=== PATIENT | female | born 1990 | race Caucasian/White ===

== ENCOUNTER 2018-08-28 07:11 | Observation (INO) | payer BC ==
[2018-08-28] MEDS ORDERED: Ketorolac INJ* 30 MG/ML 1 ML VIAL IV PUSH ONE (07:54)
[2018-08-28] MEDS ORDERED: Ondansetron INJ* 2 MG/ML VIAL IV ONE (07:54)
[2018-08-28] MEDS ORDERED: NS 0.9% 1000 ML** 1,000 ML IV ONE ×2 (07:54→07:55)
--- NOTE | 2018-08-28 07:54 | ED ---
Abdominal Pain/Female - HPI Summary HPI Summary: The patient is a 27 y/o F presenting to [facility] with a chief complaint of sudden onset constant stabbing diffuse abd pain that is worst in the RLQ starting yesterday morning. She states the the pain is currently rated 6/10 in severity, and it is worsened by movement and ambulation, but alleviated by rest. She additionally c/o mild fever, chills, diarrhea with one episode of dark stool ( no blood) without pain, nausea, diarrhea, decreased appetite, and low back pain. She attempted to relieve the pain with Pepto-Bismol to little relief. She denies CP and SOB. No allergies. No past medical or surgical hx. Nonsmoker, weekly EtOH, no substance use. LNMP: 08/23/2018. - History of Current Complaint Chief Complaint: EDAbdPain Stated Complaint: ABD PAIN PER PT Time Seen by Provider: 08/28/18 07:43 Hx Obtained From: Patient Onset/Duration: Sudden Onset, Lasting Days - starting yesterday morning, Still Present Timing: Constant Severity Initially: Moderate Severity Currently: Severe Pain Intensity: 6 Pain Scale Used: 0-10 Numeric Location: Diffuse, Other - worse in the RLQ Radiates: No Character: Other: - stabbing Aggravating Factor(s): Movement, Other: - ambulation Alleviating Factor(s): Position - lying down Associated Signs and Symptoms: Positive: Fever, Back Pain - low, Decreased Appetite, Nausea, Vomiting, Diarrhea - with one episode of dark stool without pain or blood, Other: - POSITIVE: chills; NEGATIVE: SOB. Negative: Chest Pain Allergies/Adverse Reactions: Allergies Allergy/AdvReac Type Severity Reaction Status Date / Time No Known Allergies Allergy Verified 08/28/18 07:23 Home Medications: Home Medications Etonogest/Eth.estradiol (Nf) [Nuvaring Vaginal Ring] 1 each VAGINAL .SEE COMMENTS 08/28/18 [History Confirmed 08/28/18] PMH/Surg Hx/FS Hx/Imm Hx Endocrine/Hematology History: Denies: Hx Diabetes Respiratory History: Denies: Hx Asthma Sensory History: Reports: Hx Contacts or Glasses Denies: Hx Deafness Opthamlomology History: Reports: Hx Contacts or Glasses Denies: Hx Legally Blind EENT History: Denies: Hx Deafness - Surgical History Surgery Procedure, Year, and Place: none Infectious Disease History: No Infectious Disease History: Denies: Traveled Outside the [place] in Last 30 Days - Family History Known Family History: Negative: Hypertension - Social History Alcohol Use: Weekly Hx Substance Use: No Substance Use Type: Reports: None Hx Tobacco Use: No Smoking Status (MU): Never Smoked Tobacco Review of Systems Positive: Fever, Chills Negative: Chest Pain Negative: Shortness Of Breath Positive: Abdominal Pain - diffuse but mostly in the RLQ, Vomiting, Diarrhea - dark stool, one episode without pain or blood, Nausea, Other - decreased appetite Positive: Other - low back pain All Other Systems Reviewed And Are Negative: Yes Physical Exam - Summary Physical Exam Summary: GENERAL: Patient is a well-developed and nourished female who is lying comfortable in the stretcher. Patient is not in any acute respiratory distress. HEAD AND FACE: Normocephalic EYES: PERRLA, EOMI x 2. EARS: Hearing grossly intact. MOUTH: Oropharynx within normal limits. NECK: Supple, trachea is midline, no adenopathy, no JVD, no carotid bruit. CHEST: Symmetric, no tenderness at palpation LUNGS: Clear to auscultation bilaterally. No wheezing or crackles. CVS: Tachycardic with regular rhythm, S1 and S2 present, no murmurs or gallops appreciated. ABDOMEN: Soft, tender to palpation over the lower quadrants but more particularly over the RLQ. Bowel sounds are normal. No abdominal abnormal pulsations. EXTREMITIES: Full ROM in all major joints, no edema, no cyanosis or clubbing. NEURO: Alert and oriented x 3. No acute neurological deficits. Speech is normal and follows commands. SKIN: Dry and warm Triage Information Reviewed: Yes Vital Signs On Initial Exam: Initial Vitals Temp Pulse Resp BP Pulse Ox 97.6 F 110 14 107/67 98 08/28/18 07:19 08/28/18 07:19 08/28/18 07:19 08/28/18 07:19 08/28/18 07:19 Vital Signs Reviewed: Yes Diagnostics - Vital Signs Vital Signs Temp Pulse Resp BP Pulse Ox 08/28/18 07:29 107 98 08/28/18 07:19 97.6 F 110 14 107/67 98 - Laboratory Result Diagrams: 08/28/18 07:51 08/28/18 07:51 Lab Statement: Any lab studies that have been ordered have been reviewed, and results considered in the medical decision making process. - CT Abd/Pel CT CT Interpretation Completed By: Radiologist Summary of CT Findings: Acute appendicitis. There is a small amount of free fluid noted along the distal appendix without loculated fluid collection to suggest abscess. ED physician has reviewed this report. Re-Evaluation - Re-Evaluation First Eval Re-Evaluation Time: 09:30 Change: Unchanged Comment: I spoke with the patient concerning CT results and surgical consult with Dr. Mccain. Abdominal Pain Fem Course/Dx - Course Course Of Treatment: The patient is a 27 y/o F with a chief complaint of sudden onset stabbing diffuse abd pain that is worst in the RLQ starting yesterday morning that worsens with movement and has been accompanied by diarrhea. Upon physical exam, the patient exhibits tachycardia and tenderness the lower quadrants but more particularly over the RLQ. Upon physical exam, the patient exhibits tachycardia and tenderness the lower quadrants but more particularly over the RLQ. She is diagnosed with acute appendicitis. Dr. Mccain, surgery, came to see the patient in the ED at 0920. The patient will be admitted to the OR. Case discussed with Dr. Mccain. I discussed results with patient. The patient agrees with this plan. - Diagnoses Provider Diagnoses: Acute appendicitis - Provider Notifications Discussed Care Of Patient With: David Mccain - surgery Time Discussed With Above Provider: 09:20 Instructed by Provider To: Other - Dr. Mccain will come see the patient in the ED to talk about surgery concerning CT results. Discharge - Sign-Out/Discharge Documenting (check all that apply): Patient Departure - Patient will be admitted to [facility] for [place]. Patient Received Moderate/Deep Sedation with Procedure: No - Discharge Plan Condition: Stable Disposition: ADMITTED TO [facility] - Billing Disposition and Condition Condition: STABLE Disposition: Admitted to [facility] - Attestation Statements Document Initiated by Scribe: Yes Documenting Scribe: Makayla Bustillo Provider For Whom Antione is Documenting (Include Credential): Dr. Rahel Barber MD Scribe Attestation: Makayla Prasad, scribed for Dr. Rhael Barber MD on 08/28/18 at 1754. Scribe Documentation Reviewed: Yes Provider Attestation: The documentation as recorded by the Makayla yates accurately reflects the service I personally performed and the decisions made by me, Dr. Rahel Braber MD Status of Scribe Document: Viewed
[2018-08-28 08:05] LABS: ABS Basophils 0.1 10^3/ul (0-0.2); ABS Eosinophils 0 10^3/ul (0-0.6); ABS Monocytes 1.1 10^3/ul (0-0.8); ABS Neutrophils 15.8 10^3/ul (1.5-7.7); ABS Nucleated RBC 0 10^3/ul; Eosinophil % 0.1 %; Hematocrit 36 % (33-41); Hemoglobin 11.8 g/dL (12.0-16.0); Lymphocyte % 5.4 %; Mean Corpuscular HGB Conc 33 g/dL (31-36); Mean Corpuscular Hemoglobin 27 pg (27-31); Mean Corpuscular Volume 82 fL (80-97); Mean Platelet Volume 6.8 fL (7.4-10.4); Nucleated Red Blood Cells % 0; Platelet Count 286 10^3/uL (150-450); Red Blood Count 4.42 10^6 /uL (3.70-4.87); Red Cell Distribution Width 14 % (10.5-15); White Blood Count 17.9 10^3/uL (3.5-10.8)
[2018-08-28 08:24] LABS: Urine Appearance Cloudy; Urine Bacteria 1+ (Absent); Urine Bilirubin Negative (Negative); Urine Blood 2+ (Negative); Urine Color Yellow; Urine Glucose Negative (Negative); Urine Ketones Negative (Negative); Urine Nitrite Negative (Negative); Urine Protein Negative (Negative); Urine Red Blood Cell 3+(>10/hpf) (Absent); Urine Squamous Epithelial Cell Present (Absent); Urine Urobilinogen Negative (Negative); Urine White Blood Cell Trace(0-5/hpf) (Absent)
[2018-08-28 08:25] LABS: ALT 9 U/L (7-52); AST 10 U/L (13-39); Albumin 3.6 g/dL (3.2-5.2); Albumin/Globulin Ratio 1.3 (1-3); Alkaline Phosphatase 55 U/L (34-104); Anion Gap 7 mmol/L (2-11); BUN/Creatinine Ratio 9.9 (8-20); Blood Urea Nitrogen 7 mg/dL (6-24); CO2 Carbon Dioxide 25 mmol/L (22-32); Chloride 103 mmol/L (101-111); EGFR African American 119.5 (>60); EGFR Non-African American 98.7 (>60); Globulin 2.8 g/dL (2-4); Glucose 114 mg/dL (70-100); Potassium 3.6 mmol/L (3.5-5.0); Sodium 135 mmol/L (135-145); Total Protein 6.4 g/dL (6.4-8.9)
[2018-08-28 08:31] LABS: HCG Pregnancy < 0.60 mIU/mL
[2018-08-28] MEDS ORDERED: Iohexol 300* (CONTRAST) 10 ML SDV IV ONE (08:33)
[2018-08-28] MEDS ORDERED: Midazolam* 1 MG/ML 5 ML VIAL (5 MG) ONE (10:19)
[2018-08-28] MEDS ORDERED: Atracurium* 10 MG/ML 10 ML VIAL ONE (10:19)
[2018-08-28] MEDS ORDERED: fentaNYL* 50 MCG/ML 2 ML VIAL (100 MCG VIAL) ONE (10:19)
[2018-08-28] MEDS ORDERED: ceFAZolin* 2 GM* ONE DOSE (Duplex) IVPB (10:30)
[2018-08-28] MEDS ORDERED: metroNIDAZOLE IV 500 MG/100ML* 500 MG/100 ML BAG IVPB ONE (10:30)
--- NOTE | 2018-08-28 10:46 | HP ---
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 The patient describes the onset of pain about 4 a.m. yesterday morning. It woke her up. It was foll owed by nausea, vomiting, and diarrhea. The patient had decreased appetite, was not able to get back to bed. Throughout the day, the patient felt much the same with decreased appetite. She tried to sleep last night with poor results, and when she was no better, she presented to the emergency room this morning . The patient denies any previous similar symptoms. She thinks she might have had fever yesterday. He r last p.o. intake was last night. PAST MEDICAL HISTORY: None. PAST SURGICAL HISTORY: None. MEDICATIONS: Oral contraceptive. ALLERGIES: No known drug allergies. FAMILY HISTORY: Noncontributory. No history of ulcerative colitis or Crohn disease. SOCIAL HISTORY: Nonsmoker. Drinks occasionally. 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 No chi ldren. REVIEW OF SYSTEMS: Fevers as described. No shortness of breath or chest pain. Good exercise toleran ce. No cardiovascular disease. No GERD. No irritable bowel symptoms. Abdominal pain as described. No dysuria. No vaginal discharge. No endocrine disorders. No allergies. No psychiatric illnesse s or history. PHYSICAL EXAMINATION GENERAL: Alert and oriented x3, in no apparent distress. VITAL SIGNS: She is afebrile. Heart rate in the 90s to 100s. Blood pressure normal. O2 sat 99 on room air. HEAD, EARS, EYES, NOSE, AND THROAT: Normocephalic, atraumatic. Sclerae anicteric. Mucous membranes are moist. NECK: No lymphadenopathy. LUNGS: Clear to auscultations bilaterally. ABDOMEN: Soft, nondistended, tender at McBurney's with positive voluntary guarding, but no rebound. Negative Rovsing and negative psoas sign. No CVA tenderness. EXTREMITIES: Within normal limits. DIAGNOSTIC STUDIES/LAB DATA: Labs reviewed. White count is 17.9, hemoglobin 11.8 which is low. El evated CRP but normal metabolic panel as well as LFTs. Urinalysis shows blood, but no nitrites. The patient underwent a CAT scan of the abdomen and pelvis. These images as well as report are revie wed and are consistent with appendicolith and appendicitis. IMPRESSION: Acute appendicitis in an otherwise healthy female. RECOMMENDATION: Laparoscopic appendectomy. I outlined the details of the procedure going over the r isks, benefits, and alternatives. We spent time talking about alternatives of antibiotics and watchf ul waiting. This was not recommended, but discussed. The patient chooses surgical intervention. I went over the possible complications, which include but not limited to bleeding, infection, injury to adjacent organs, abscess formation, hernia formation, and the potential need for additional procedur es. The patient's questions were answered and she agrees to proceed. She will receive preoperative antibiotics, IV fluids, and maintained on NPO status. She will be possibly discharged after the surg chai. We talked about the expected postoperative course. [id number]/[facility] #: [id number]
[2018-08-28] MEDS ORDERED: Naloxone* 0.4 MG/ML 1 ML VIAL IV PRN (11:29)
[2018-08-28] MEDS ORDERED: PROCHLORPERAZINE INJ 5 MG/ML 2 ML VIAL IV PRN (11:29)
[2018-08-28] MEDS ORDERED: Morphine 4 MG/ML VIAL (1 ml) 4 MG/ML VIAL IV PRN (11:29)
[2018-08-28] MEDS ORDERED: Scopolamine 1.5 mg* PATCH TRANSDERM PRN (11:29)
[2018-08-28] MEDS ORDERED: fentaNYL* 50 MCG/ML 2 ML VIAL (100 MCG VIAL) IV PRN (11:29)
[2018-08-28] MEDS ORDERED: oxyCODONE/Acetamin 5/325 MG* TAB PO PRN (11:29)
[2018-08-28] MEDS ORDERED: DiMENhydriNATE IV* 50 MG/ML VIAL IV PUSH PRN (11:29)
[2018-08-28] MEDS ORDERED: PROCHLORPERAZINE INJ 5 MG/ML 2 ML VIAL ONE (11:42)
[2018-08-28] MEDS ORDERED: Neostigmine Methylsulfate* 1 MG/ML 10 ML VIAL (1 mg/ml) ONE (11:42)
[2018-08-28] MEDS ORDERED: Glycopyrrolate IV* 0.2 MG/ML 1 ML VIAL ONE (11:42)
[2018-08-28] MEDS ORDERED: Dexamethasone IV* 4 MG/ML 1 ML (4 MG) ONE (11:42)
[2018-08-28] MEDS ORDERED: Lidocaine 2% PF * 5 ML VIAL ONE (11:42)
[2018-08-28] MEDS ORDERED: Propofol* 10 MG/ML 20 ML BTL ONE (11:42)
[2018-08-28] MEDS ORDERED: Morphine 10 MG/ML VIAL (1 ml) ONE (11:43)
[2018-08-28] MEDS ORDERED: Ketorolac INJ* 30 MG/ML 1 ML VIAL IV PRN (12:04)
[2018-08-28] MEDS ORDERED: Acetaminophen TAB* 325 MG PO PRN (12:04)
[2018-08-28] MEDS ORDERED: Ondansetron INJ* 2 MG/ML VIAL IV PRN (12:04)
--- NOTE | 2018-08-28 12:04 | BRIEFOPN ---
Brief Operative Note - Surgery Procedures: Pre-OP Diagnoses: acute appendicitis Post-op Diagnosis: perforated appendicitis Procedure: Laparoscopic appendectomy Surgeon: Adán Asst: none Anethesia: SALINAA EBL: minimal IVF: crystalloid Specimen: appendix Drains: none
[2018-08-28] MEDS ORDERED: ETONOGESTREL VAGINAL SCH (13:00)
[2018-08-28] MEDS ORDERED: ETH ESTRADIOL VAGINAL SCH (13:00)
--- NOTE | 2018-08-28 13:05 | OP ---
OPERATIVE REPORT: DATE OF OPERATION: 08/28/18 DATE OF : 89 SURGEON: Dr. David Mccain. HONE OPERATOR: None. ANESTHESIOLOGIST: Dr. Crespo. ANESTHESIA: General anesthesia. PRE-OP DIAGNOSIS: Acute appendicitis. POST-OP DIAGNOSIS: Perforated appendicitis. OPERATIVE PROCEDURE: ESTIMATED BLOOD LOSS: Minimal. FLUIDS: Minimal crystalloid fluid given. SPECIMENS: Appendix. DESCRIPTION OF PROCEDURE: The patient was identified in the preoperative area. She had been marked. She was brought to the operating room, placed on the operating table in the supine position. Preope rative antibiotics were given. Sequential devices were placed on bilateral lower extremities. Genera l anesthesia was induced. The patient's abdomen was clipped of hair and prepped and draped in standa rd surgical fashion and time-out was performed. Folds of the umbilicus were elevated anteriorly and a Veress needle was attempted to be placed in the abdomen. This proved somewhat difficulty and we changed to a cut down procedure. Cut down was perf ormed of the umbilicus. This was deepened down through the layers and entry into the abdominal cavit y was made under direct vision and a 5-mm trocar first was inserted, allowed the abdomen to insufflat e. This trocar was removed and a 12 mm was placed with an Optiview into the abdomen. Additional 5-mm trocars were placed in the suprapubic area and left lower quadrant. Table was repositioned. There was scant fluid that was murky in the pelvis. Small bowel was indurat ed and overlying the appendix. This was gently pulled back exposing an inflamed mildly gangrenous ap pendix. The small bowel had covered a small perforation, small pinhole at the distal portion of the appendix. Blunt dissection was utilized to bring the appendix up into the anterior aspect, and dissection was c arried out along the mesentery using cautery. The appendiceal artery was isolated. It was double cl ipped and ligated. We continued the dissection to the base of the appendix, which was then taken wit h a 45-mm chilel ZULY stapling device through a healthy cecal tissue. Appendix was then placed in an end oscopic retrieval bag. We then used suction to suction out the fluid in the pelvis as well as at the site of the surgery. W e irrigated copiously. Also suctioned over the liver and then put the patient back to neutral positi on. Appendix was removed with the endoscopic retrieval bag through the umbilical port site. The abd omen was allowed to collapse. Trocars were removed under direct vision. The umbilical port site was closed, fascia with an 0 Vicryl suture and all 3 skin incisions were reapproximated with 4-0 Monocry l subcuticular sutures followed by Steri-Strips and sterile dressing. [id number]/[facility] #: [id number]
[2018-08-28] MEDS: NS 0.9% 1000 ML** 1,000 ML IV SCH ×2 (14:02→23:39)
[2018-08-28] MEDS: Piperacillin/Tazobactam VIAL*) 3.375 GM in NS 0.9% 100 ML* 100 ML IVPB SCH ×2 (14:26→22:09)
[2018-08-28] MEDS: HYDROcodone/ACETAMIN 5-325 MG* 1 TAB PO PRN ×2 (14:27→21:01)
[2018-08-29] MEDS: HYDROcodone/ACETAMIN 5-325 MG* 1 TAB PO PRN (04:22)
[2018-08-29] MEDS: Piperacillin/Tazobactam VIAL*) 3.375 GM in NS 0.9% 100 ML* 100 ML IVPB SCH (05:56)
[2018-08-29 07:39] VITALS: BP 97/54
[2018-08-29] MEDS: NS 0.9% 1000 ML** 1,000 ML IV SCH (08:56)
--- NOTE | 2018-08-29 11:34 | DS ---
DISCHARGE SUMMARY: DATE OF ADMISSION: 08/28/18 DATE OF DISCHARGE: 08/29/18 HISTORY/HOSPITAL COURSE: Ms. Estephania Acevedo is a 27-year-old female admitted to my service with appendicitis, went to the operating room urgently and underwent a laparoscopic appendectomy for perforated appendix. She came out and was treated with antibiotics as well as IV fluids and kept overnight. Please see operative report for details. On postop day 1, the patient was evaluated. She was afebrile, vital signs were stable, T-max 100. Alert and oriented x3, in no apparent distress. Lungs clear to auscultation bilaterally. Abdomen soft, nondistended, incisional tenderness. Dressing in place. No cellulitis. Extremities within normal limits with no calf tenderness. Postop day 1, perforated appendix hemodynamically stable, plan for discharge home on Augmentin for 5 days, and a prescription of Percocet also sent. The patient will go home and has asked a significant amount of questions regarding logistics since her is leaving for a business trip. They plan to go to [facility] where her mother can watch her. Advised against driving within the next 24 hours; that is something they may have to do anyhow. She understands she can call our offices at any time. We discussed the possibility of needing postoperative care elsewhere if there should be any complications. The patient is aware of this and all her questions were answered. We have given her our number to contact our offices to make a postoperative appointment as well as to call with any questions. [id number]/[facility] #: [id number] LUNA
[2018-08-31] MEDS ORDERED: Scopolamine PATCH Remove* 1 NOTE MISC PATCH OFF ONE (11:31)
== END 2018-08-29 11:48 | disposition home or self-care (01) ==
LOC: ED 07:11 → OR 11:52 → INTOOBSV 13:25 → SSU 13:25
PROVIDERS: ADMIT Surgery; ATTEND Surgery
DX: K35.32 Acute appendicitis with perforation, localized peritonitis, and gangrene, without abscess (principal); R10.31 Right lower quadrant pain; R50.9 Fever, unspecified; M54.9 Dorsalgia, unspecified; R11.2 Nausea with vomiting, unspecified; R19.7 Diarrhea, unspecified
CPT/HCPCS: 36415; 74177; 80053; 81003; 81015; 83605; 83690; 84702; 85025; 86140; 87086; 88304; 96361; 96365; 96375; 99283; C1776; G0378; J0690; J0780; J1100; J1885; J2250; J2270; J2405; J2543; J2704; J2710; J3010; J3490; Q9967